=== PATIENT | female | born 1945 | race Caucasian/White ===

== ENCOUNTER → 2016-09-02 | Outpatient (CLI) | payer MEDICARE, BC ==
[~2016-09-02] VITALS: Ht 157.5 cm; Wt 84.1 kg
[~2016-09-02] MED LIST: ACTOS 45MG45 MG/TAB PO; AMARYL; AMARYL4 MG PO; AMLOPIDINE; FLEXERIL; IBUPROFEN; LISINOPRIL; NORCO 325 MG-51 TAB PO; NORVASC 5MG5 MG/TAB PO; PERCOCET 5/321 UDTAB PO; PRINIVIL20 MG PO; ZOCOR 20MG20 MG PO
[2016-09-02 13:45] VITALS: BP 146/83; PULSE 83
[2016-09-02 15:08] VITALS: BP 149/68; PULSE 88
== END ==
LOC: COL.RAD 13:00
DX: M51.26 Other intervertebral disc displacement, lumbar region (principal); M47.816 Spondylosis without myelopathy or radiculopathy, lumbar region
CPT/HCPCS: J3301

== ENCOUNTER → 2016-11-12 | Outpatient (CLI) | payer MEDICARE, BC | LOC: MC.RAD 09:53 | DX: Z12.31 Encounter for screening mammogram for malignant neoplasm of breast (principal) ==

== ENCOUNTER → 2018-01-13 | Outpatient (CLI) | payer MEDICARE, BC ==
[~2018-01-13] VITALS: Ht 157.5 cm; Wt 82.0 kg
[~2018-01-13] MED LIST changes: +GLUCOTROL10 MG PO; +JANUVIA 100MG100 MG PO; +PRINZIDE 25 MG-1 TAB PO
[2018-01-13 15:24] VITALS: BP 132/56; PULSE 106; TEMP 98.2
== END ==
LOC: EUO 15:00
DX: M81.0 Age-related osteoporosis without current pathological fracture (principal)
CPT/HCPCS: J3489

== ENCOUNTER → 2018-02-19 | Outpatient (CLI) | payer MEDICARE, BC | LOC: MC.RAD 09:00 | DX: Z12.31 Encounter for screening mammogram for malignant neoplasm of breast (principal) ==

== ENCOUNTER → 2019-03-22 | Outpatient (CLI) | payer MEDICARE, BC | LOC: MC.RAD 09:57 | DX: Z12.31 Encounter for screening mammogram for malignant neoplasm of breast (principal) ==

== ENCOUNTER 2019-09-21 09:01 | Outpatient (CLI) | payer MEDICARE, BC ==
[~2019-09-21] VITALS: Ht 157.5 cm; Wt 73.6 kg
[2019-09-21] MEDS ORDERED: RECLAST5 MG/100 M IV (09:35)
[2019-09-21 09:47] VITALS: BP 124/68; PULSE 88; TEMP 97.4
== END 2019-09-21 11:18 | disposition home or self-care (01) ==
LOC: EUO 09:01
DX: M81.0 Age-related osteoporosis without current pathological fracture (principal)
CPT/HCPCS: J3489

== ENCOUNTER 2020-09-20 12:52 | Outpatient (CLI) | payer MEDICARE, BC ==
[~2020-09-20] VITALS: Ht 157.5 cm; Wt 74.5 kg
[~2020-09-20 12:52] MED LIST changes: +RECLAST5 MG/100 M IV
[2020-09-20 13:22] VITALS: BP 107/47; PULSE 95; TEMP 98.2
== END 2020-09-20 14:50 | disposition home or self-care (01) ==
LOC: EUO 12:52
DX: M81.0 Age-related osteoporosis without current pathological fracture (principal)
CPT/HCPCS: J3489

== ENCOUNTER 2021-09-26 14:02 | Outpatient (CLI) | payer MEDICARE, BC ==
[~2021-09-26] VITALS: Ht 157.5 cm; Wt 76.1 kg
[2021-09-26 14:48] VITALS: BP 119/72; PULSE 92; TEMP 97.8
== END 2021-09-26 17:59 | disposition home or self-care (01) ==
LOC: EUO 14:02
DX: M81.0 Age-related osteoporosis without current pathological fracture (principal)
CPT/HCPCS: J3489

== ENCOUNTER 2022-10-01 10:52 | Outpatient (CLI) | payer MEDICARE, BC ==
[2022-10-01 11:25] VITALS: BP 126/77; PULSE 105; TEMP 99.4
--- NOTE | 2022-10-01 12:00 | NUR ---
Pt exits dept with steady gait. She tolerated infusion without issue. IV site wrapped with coban. She exits dept with steady gait.
== END 2022-10-01 12:00 | disposition home or self-care (01) ==
LOC: EUO 10:52
DX: M81.0 Age-related osteoporosis without current pathological fracture (principal)
CPT/HCPCS: J3489

== ENCOUNTER 2023-10-22 11:03 | Outpatient (CLI) | payer MEDICARE, BC ==
[~2023-10-22] VITALS: Ht 157.5 cm; Wt 69.5 kg
[2023-10-22 11:11] VITALS: BP 122/73; PULSE 78; TEMP 97.9
[2023-10-22] MEDS ORDERED: JARDIANCE25 PO (11:21)
[2023-10-22] MEDS ORDERED: VITAMIN D31000 I1 PO (11:21)
--- NOTE | 2023-10-22 12:25 | NUR ---
PT TOLERATED INFUSION WELL AND VS REMAINED WITHIN NORMAL LIMITS. PT [facility]UL[facility] TO [facility] UPON DISCHARGE AND IV DISCONTINUED.
== END 2023-10-22 12:26 | disposition home or self-care (01) ==
LOC: EUO 11:03
DX: M81.0 Age-related osteoporosis without current pathological fracture (principal)
CPT/HCPCS: J3489